=== PATIENT | female | born 1940 | race Hispanic/Latino ===

== ENCOUNTER → 2018-12-14 | Outpatient (CLI) | payer OTHER ==
[~2018-12-14] MED LIST: AMLO5TAB9 PO; IRBE300T19 PO; LEVO50TA11 PO; METO-408 PO; PANT40TA25 PO; SIMV5TAB58 PO
== END | disposition home or self-care (01) ==
LOC: OIH 13:00
PROVIDERS: ATTEND Internal Medicine
DX: K44.9 Diaphragmatic hernia without obstruction or gangrene (principal); I10 Essential (primary) hypertension; I99.8 Other disorder of circulatory system
CPT/HCPCS: 71046

== ENCOUNTER → 2019-03-07 | Outpatient (CLI) | payer OTHER | END | disposition home or self-care (01) | LOC: OIH 10:34 | PROVIDERS: ATTEND Internal Medicine | DX: J45.998 Other asthma (principal) | CPT/HCPCS: 71046 ==

== ENCOUNTER → 2019-07-20 | Outpatient (CLI) | payer OTHER | END | disposition home or self-care (01) | LOC: RAH 15:04 | PROVIDERS: ATTEND Internal Medicine | DX: M79.672 Pain in left foot (principal); D17.9 Benign lipomatous neoplasm, unspecified | CPT/HCPCS: 76882 ==

== ENCOUNTER → 2022-04-16 | Outpatient (CLI) | payer OTHER ==
[~2022-04-16] MED LIST changes: +AMLO-257 PO; -AMLO5TAB9 PO; +IRBE300T18 PO; -IRBE300T19 PO; -PANT40TA25 PO; +PANT40TA54 PO
== END | disposition home or self-care (01) ==
LOC: RAH 11:46
PROVIDERS: ATTEND Internal Medicine
DX: I35.1 Nonrheumatic aortic (valve) insufficiency (principal); I11.9 Hypertensive heart disease without heart failure; E66.9 Obesity, unspecified; R60.0 Localized edema
CPT/HCPCS: 93306